=== PATIENT | male | born 1980 | race Caucasian/White ===

== ENCOUNTER 2020-11-16 09:56 | Inpatient (IN) | payer OTHER ==
[2020-11-16] MEDS ORDERED: FAMOTIDINE 20 MG TABLET PO ONE (10:39)
[2020-11-16] MEDS ORDERED: MAG HYDROX/AL HYDROX/SIMETH -MYLANTA- ORAL SUSPENSION PO ONE (10:39)
[2020-11-16] MEDS ORDERED: FAMOTIDINE 20 MG TABLET ONE (11:04)
[2020-11-16] MEDS ORDERED: MAG HYDROX/AL HYDROX/SIMETH 30 ML UNIT-DOSE CUP ONE (11:04)
[2020-11-16 11:49] LABS: HEMATOCRIT 31.4 % (35.4-49); HEMOGLOBIN 10.8 GM/dL (11.7-16.9); MCH 33.5 pg (25.7-33.7); MCHC 34.6 g/dl (32.0-35.9); MEAN PLT VOLUME 8.9 fl (7.5-11.1); PLATELET COUNT 217 K/MM3 (134-434); RBC 3.23 M/mm3 (4.00-5.60); RDW 16.1 % (11.9-15.9); WHITE BLOOD COUNT 5.1 K/mm3 (4.0-10.0)
[2020-11-16 12:12] LABS: CALCIUM 8.2 mg/dL (8.5-10.1)
[2020-11-16 12:13] LABS: ALBUMIN 2.2 g/dl (3.4-5.0); BLOOD UREA NITROGEN 10.8 mg/dL (7-18)
[2020-11-16 12:16] LABS: CREATININE 0.6 mg/dL (0.55-1.3)
[2020-11-16 12:17] LABS: BILIRUBIN,TOTAL 2.6 mg/dL (0.2-1); TOT PROT 6.8 g/dl (6.4-8.2)
[2020-11-16] MEDS ORDERED: SODIUM CHLORIDE 0.9% 1000 ML INFUS.BAG IV ONE (12:57)
[2020-11-16 14:01] LABS: PLATELET ESTIMATE ADEQUATE; TARGET CELLS 1+
[2020-11-16] MEDS ORDERED: diazePAM CARPU-JECT 10 MG/2 ML DISP.SYRIN IVPUSH ONE (15:32)
[2020-11-16] MEDS ORDERED: diazePAM CARPU-JECT 10 MG/2 ML DISP.SYRIN ONE (15:50)
[2020-11-16] MEDS ORDERED: LORazepam 2 MG/ML SDV VIAL IVPUSH PRN (16:26)
[2020-11-16] MEDS ORDERED: LORazepam 2 MG/ML SDV VIAL IVPUSH ONE (16:27)
[2020-11-16] MEDS ORDERED: FOLIC ACID INJECTION - 1 MG, THIAMINE HCL 100 MG, MULTIVIT INJECTION ADULT 10 ML in SOD... IVPB ONE (16:29)
[2020-11-16] MEDS ORDERED: LORazepam 2 MG/ML SDV VIAL ONE (18:01)
[2020-11-16 20:49] VITALS: BMI 19.1
[2020-11-17 05:10] LABS: PH,URINE 7.5 (5.0-8.0); URINE APPEARANCE CLEAR; URINE BILIRUBIN NEGATIVE (NEGATIVE); URINE COLOR YELLOW; URINE GLUCOSE (UA) NEGATIVE (NEGATIVE); URINE KETONE NEGATIVE (NEGATIVE); URINE LEUK ESTERASE NEGATIVE (NEGATIVE); URINE NITRITE NEGATIVE (NEGATIVE); URINE PROTEIN NEGATIVE (NEGATIVE); URINE UROBILINOGEN 0.2 mg/dL (0.2-1.0)
[2020-11-17 05:19] LABS: OPIATES, URI NEGATIVE ng/ml (CUTOFF=300); PHENCYCLIDINE,URINE NEGATIVE ng/ml (CUTOFF=25); URINE BARBITURATES NEGATIVE ng/ml (CUTOFF=200)
[2020-11-17 05:32] LABS: COCAINE, UR NEGATIVE ng/ml (CUTOFF=300); METHADONE, UR NEGATIVE ng/ml (CUTOFF=300); URINE AMPHETAMINES NEGATIVE ng/ml (CUTOFF=500); URINE BENZODIAZEPINES NEGATIVE ng/ml (CUTOFF=200)
[2020-11-17 08:13] LABS: BASO % 1.7 % (0-2.0); EOS % 1.6 % (0-4.5); HEMATOCRIT 32.8 % (35.4-49); HEMOGLOBIN 11.4 GM/dL (11.7-16.9); LYMPH % 37.6 % (8-40); MCH 33.8 pg (25.7-33.7); MCHC 34.7 g/dl (32.0-35.9); MEAN CELL VOLUME 97.5 fl (80-96); MEAN PLT VOLUME 8.5 fl (7.5-11.1); MONO % 9.1 % (3.8-10.2); PLATELET COUNT 240 K/MM3 (134-434); RBC 3.36 M/mm3 (4.00-5.60); RDW 16.4 % (11.9-15.9); WHITE BLOOD COUNT 6.4 K/mm3 (4.0-10.0)
[2020-11-17 08:20] LABS: INR 0.9 (0.83-1.09); PROTHROMBIN TIME (PATIENT) 11.1 SEC (9.7-13.0)
[2020-11-17 09:01] LABS: ALBUMIN 2.3 g/dl (3.4-5.0); BLOOD UREA NITROGEN 7.1 mg/dL (7-18); CALCIUM 8.2 mg/dL (8.5-10.1)
[2020-11-17 09:05] LABS: CREATININE 0.6 mg/dL (0.55-1.3)
[2020-11-17 09:06] LABS: BILIRUBIN,TOTAL 2.9 mg/dL (0.2-1); TOT PROT 6.8 g/dl (6.4-8.2)
[2020-11-17] MEDS ORDERED: ENOXAPARIN NA (PORCINE) 40 MG/0.4 ML DISP.SYRIN SQ SCH (10:00)
[2020-11-17] MEDS: THIAMINE HCL 100 MG TABLET (FP) PO SCH (10:14)
[2020-11-17] MEDS: FOLIC ACID 1 MG TABLET (FP) PO SCH (10:14)
[2020-11-18 05:26] VITALS: BP 118/72; PULSE 56; TEMP 98.2
[2020-11-18 09:10] LABS: BASO % 0.8 % (0-2.0); EOS % 1.3 % (0-4.5); HEMATOCRIT 34.5 % (35.4-49); HEMOGLOBIN 11.9 GM/dL (11.7-16.9); LYMPH % 28.8 % (8-40); MCH 33.9 pg (25.7-33.7); MCHC 34.6 g/dl (32.0-35.9); MEAN PLT VOLUME 8.7 fl (7.5-11.1); MONO % 9.1 % (3.8-10.2); PLATELET COUNT 267 K/MM3 (134-434); RBC 3.52 M/mm3 (4.00-5.60); RDW 16.4 % (11.9-15.9); WHITE BLOOD COUNT 6.5 K/mm3 (4.0-10.0)
[2020-11-18 09:21] LABS: RETICULOCYTES 2.96 % (0.5-1.5)
[2020-11-18 09:51] LABS: ALBUMIN 2.5 g/dl (3.4-5.0); BLOOD UREA NITROGEN 6.3 mg/dL (7-18)
[2020-11-18 09:54] LABS: CREATININE 0.5 mg/dL (0.55-1.3)
[2020-11-18 09:55] LABS: BILIRUBIN,TOTAL 3.1 mg/dL (0.2-1); TOT PROT 7.3 g/dl (6.4-8.2)
[2020-11-18] MEDS: FOLIC ACID 1 MG TABLET (FP) PO SCH (09:57)
[2020-11-18] MEDS: THIAMINE HCL 100 MG TABLET (FP) PO SCH (09:58)
[2020-11-18 10:09] LABS: IRON SERUM 149 ug/dL (50-175); TOTAL IRON BINDING CAPACITY 209 ug/dL (250-450)
[2020-11-18 10:28] LABS: GAMMA GLUTAMYL TRANSPEPTIDASE 1239 U/L (5-85)
[2020-11-19 17:12] LABS: GLIADIN ANTIBODY IGA 17 units (0-19); GLIADIN ANTIBODY IGG 4 units (0-19); TRANSGLUTAMINASE IGG 7 U/mL (0-5)
== END 2020-11-18 10:28 | disposition left against medical advice (07) | DRG 280 ==
LOC: JER 09:56 → JERBED 15:54 → J6S 20:06
PROVIDERS: ATTEND Internal Medicine
PROC: HZ2ZZZZ Detoxification Services for Substance Abuse Treatment (ICD-10-PCS; principal; 2020-11-16)
DX: K70.10 Alcoholic hepatitis without ascites (principal); R10.13 Epigastric pain; F10.230 Alcohol dependence with withdrawal, uncomplicated; R16.0 Hepatomegaly, not elsewhere classified; R19.4 Change in bowel habit; R63.4 Abnormal weight loss; K29.20 Alcoholic gastritis without bleeding; R06.6 Hiccough; D64.9 Anemia, unspecified; Z68.1 Body mass index [BMI] 19.9 or less, adult; E03.9 Hypothyroidism, unspecified
CPT/HCPCS: 36415; 74177-TC; 76705-TC; 80053; 80074; 80307; 81003; 82150; 82728; 82784; 82787; 82977; 83036; 83516; 83540; 83550; 83690; 83735; 84100; 84436; 84439; 84443; 85025; 85045; 85610; 86038; 86140; 86803; 99285-25; C9803; Q9967; U0003; U0005